=== PATIENT | female | born 1990 | race African-American/Black ===

== ENCOUNTER 2024-10-10 21:01 | Emergency (ER) | payer OTHER ==
[~2024-10-10] VITALS: Ht 165.1 cm; Wt 85.7 kg
[2024-10-10 22:25] LABS: CREATININE 0.9 mg/dL (0.6-1.3); POTASSIUM 4.2 mmol/L (3.5-5.1)
[2024-10-10 22:36] LABS: CALCIUM, SERUM 9.3 mg/dL (8.5-10.1)
[2024-10-10 23:04] LABS: APPEARANCE,URINE CLEAR (CLEAR); BILIRUBIN,URINE NEGATIVE (NEGATIVE); BLOOD, URINE NEGATIVE Ery/uL (NEGATIVE); COLOR,URINE YELLOW (YELLOW); KETONES,URINE NEGATIVE (NEGATIVE); LEUKOCYTE ESTERASE ,URINE NEGATIVE (NEGATIVE); NITRITE, URINE NEGATIVE (NEGATIVE); PROTEIN,URINE NEGATIVE (NEGATIVE); UGLUCOSE NEGATIVE (NEGATIVE); UROBILINOGEN,URINE 0.2 EU/dL (0.2)
[2024-10-10] MEDS ORDERED: KETOROLAC TROMETHAMINE 15 MG/ML VIAL ONE (23:49)
[2024-10-10] MEDS: IV NS 0.9% 1,000 ML BAG IV ONE (23:56)
[2024-10-10] MEDS: KETOROLAC TROMETHAMINE 15 MG/ML VIAL IV ONE (23:57)
[2024-10-11 00:42] LABS: BASOPHILS # (AUTO) 0.1 K/uL (0.0-0.2); BASOPHILS % (AUTO) 1.4 % (0.0-2.0); EOSINOPHILS # (AUTO) 0.3 K/uL (0.0-0.7); EOSINOPHILS % (AUTO) 3.8 % (0.0-6.0); HEMATOCRIT 33 % (33-45); HEMOGLOBIN 10.6 g/dL (11.5-14.8); LYMPHOCYTES # (AUTO) 3.9 K/uL (0.8-4.8); LYMPHOCYTES % (AUTO) 51.1 % (20.0-44.0); MEAN CORPUSCULAR HEMOGLOBIN 23 PG (26.0-33.0); MEAN CORPUSCULAR HGB CONC 32 g/dl (31.0-36.0); MEAN CORPUSCULAR VOLUME 71 fL (82-100); MONOCYTES # (AUTO) 0.4 K/uL (0.1-1.30); NEUTROPHILS # (AUTO) 2.9 K/uL (1.8-8.9); NEUTROPHILS % (AUTO) 38.7 % (43.0-81.0); PLATELET COUNT (AUTO) 268 K/uL (150-450); RED BLOOD CELL COUNT(AUTO) 4.61 MIL/uL (4.0-5.2); RED CELL DISTRIBUTION WIDTH 15.6 % (11.5-15.0); WHITE BLOOD COUNT (AUTO) 7.6 K/uL (4.3-11.0)
[2024-10-11] MEDS ORDERED: ONDA4TAB5 PO (03:40)
[2024-10-11] MEDS ORDERED: KETO10TA2 PO (03:40)
[2024-10-11 04:29] VITALS: BP 124/90; TEMP 98.3; O2SAT 98
== END 2024-10-11 04:29 | disposition home or self-care (01) ==
LOC: ER 21:01
DX: R10.2 Pelvic and perineal pain (principal); R35.0 Frequency of micturition; D25.9 Leiomyoma of uterus, unspecified; E28.2 Polycystic ovarian syndrome
CPT/HCPCS: 99285; 74177; 96374; 76856; 96361; 80048; 81003; 36415; 84702; 85025; J1885; J7050; Q9967